=== PATIENT | female | born 1945 | race Caucasian/White ===

== ENCOUNTER → 2016-05-13 | Outpatient (CLI) | payer MEDICARE, OTHER ==
--- NOTE | 2016-05-13 09:31 | REPMRS ---
Patient History The patient states she had a clinical breast exam in 01/2016. Patient is postmenopausal, has history of other cancer at age 68, and is nulliparous. Family history of breast cancer in mother at age 50 or over. Benign stereotatic breast biopsy of the right breast, April 23, 2010. Digital Woman Screen Mammo: May 13, 2016 - Exam #: [id number] Bilateral CC and MLO view(s) were taken. Technologist: Mihaela Chen, Technologist Prior study comparison: May 09, 2015, digital woman screen mammo performed at [facility] [employer] [facility]. May 06, 2014, digital woman screen mammo performed at [facility] [employer] [facility]. May 05, 2013, digital woman screen mammo performed at [facility] [employer] [facility]. FINDINGS: There are scattered fibroglandular densities. There has been no change in the appearance of the mammogram from the prior studies. There is a needle biopsy marker clip in the right breast. There is a mild amount of scattered fibroglandular density which is fairly symmetric. There is no interval development of dominant mass, architectural distortion, or clustered microcalcification suggestive of malignancy. ASSESSMENT: BI-RADS/ACR category 1 mammogram. Negative. Recommendation Routine screening mammogram in 1 year (for women over age 40). This mammogram was interpreted with the aid of an FDA-approved computer-aided dectection system. Electronically Signed By: Chandler Mart MD 05/13/16 0931
== END ==
LOC: M WHC 08:59
PROVIDERS: ATTEND Nurse Practitioner Family
DX: Z12.31 Encounter for screening mammogram for malignant neoplasm of breast (principal); Z80.3 Family history of malignant neoplasm of breast

== ENCOUNTER 2017-01-25 19:23 | Emergency (ER) | payer MEDICARE, OTHER ==
[~2017-01-25] VITALS: Ht 167.6 cm; Wt 77.3 kg
[2017-01-25] MEDS ORDERED: CLOP75TA2 (19:34)
[2017-01-25] MEDS ORDERED: LISI10TA4 (19:34)
[2017-01-25] MEDS ORDERED: LANS30CA (19:34)
[2017-01-25] MEDS ORDERED: PRAV10TA3 (19:34)
[2017-01-25] MEDS ORDERED: ASPI1TAB15 (19:34)
[2017-01-25] MEDS ORDERED: CLINDAMYCIN 150 MG CAP PO ONE (21:45)
[2017-01-25] MEDS ORDERED: CLEO300C2 PO (21:55)
[2017-01-25 22:03] VITALS: BP 152/78
== END 2017-01-25 22:09 | disposition home or self-care (01) ==
LOC: M ED 19:23
DX: L03.211 Cellulitis of face (principal); I10 Essential (primary) hypertension; Z79.01 Long term (current) use of anticoagulants; Z79.899 Other long term (current) drug therapy; Z86.73 Personal history of transient ischemic attack (TIA), and cerebral infarction without residual deficits

== ENCOUNTER → 2017-05-14 | Outpatient (CLI) | payer MEDICARE, OTHER | LOC: M WHC 13:04 | DX: Z12.31 Encounter for screening mammogram for malignant neoplasm of breast (principal) | CPT/HCPCS: 77067 ==

== ENCOUNTER → 2017-12-25 | Outpatient (REF) | payer MEDICARE, OTHER ==
[2017-12-25 16:10] LABS: BASO # 0.1 10^3/uL (0.0-0.2); BASO % 0.8 % (0.0-1.0); EOS # 0.3 10^3/uL (0.0-0.50); EOS % 3.5 % (0.0-3.0); HEMATOCRIT 44.9 % (36.0-47.0); HEMOGLOBIN 15.3 g/dl (12.0-15.5); IMMATURE GRANULOCYTE % 0.5 % (0-3.0); LYMPH # 1.6 10^3/uL (1.5-4.5); LYMPH % 18.9 % (24.0-44.0); MEAN CORPUSCULAR HEMOGLOBIN 30.3 pg (27.0-33.0); MEAN CORPUSCULAR HGB CONC 34.1 g/dl (32.0-36.5); MEAN CORPUSCULAR VOLUME 88.9 fl (80.0-96.0); MONO # 0.7 10^3/uL (0.0-0.8); MONO % 7.9 % (0.0-5.0); NEUTROPHILS # 5.9 10^3/uL (1.8-7.7); NEUTROPHILS % 68.4 % (36.0-66.0); PLATELET COUNT, AUTOMATED 184 10^3/uL (150-450); RED BLOOD COUNT 5.05 10^6/uL (4.00-5.40); RED CELL DISTRIBUTION WIDTH 12.9 % (11.5-14.5); WHITE BLOOD COUNT 8.6 10^3/uL (4.0-10.0)
[2017-12-25 16:21] LABS: ANION GAP 10 MEQ/L (8-16); BLOOD UREA NITROGEN 23 MG/DL (7-18); CALCIUM LEVEL 9.1 MG/DL (8.8-10.2); CARBON DIOXIDE LEVEL 25 MEQ/L (21-32); CHLORIDE LEVEL 105 MEQ/L (98-107); GLOMERULAR FILTRATION RATE > 60.0 (>39); GLUCOSE, FASTING 81 MG/DL (70-100); POTASSIUM SERUM 4.5 MEQ/L (3.5-5.1); SODIUM LEVEL 140 MEQ/L (136-145)
== END ==
LOC: M SFHCPLAZ 14:34
DX: J20.9 Acute bronchitis, unspecified (principal)
CPT/HCPCS: 80048

== ENCOUNTER → 2017-12-25 | Outpatient (CLI) | payer MEDICARE, OTHER | LOC: M SMT 15:00 | DX: J20.9 Acute bronchitis, unspecified (principal) | CPT/HCPCS: 71046; 80048 ==

== ENCOUNTER → 2018-05-19 | Outpatient (CLI) | payer MEDICARE, OTHER ==
[~2018-05-19] MED LIST: ASPI1TAB15; CLEO300C2 PO; CLOP75TA2; LANS30CA; LISI10TA4; PRAV10TA3
--- NOTE | 2018-05-19 12:05 | REPMRS ---
Patient History The patient states she had a clinical breast exam in 01/2018. Patient is postmenopausal, has history of basal cells skin cancer at age 68, and is nulliparous. Family history of breast cancer at age 50 or over in mother. Benign stereotatic breast biopsy of the right breast, April 23, 2010. No Hormone Replacement Therapy 3D TOMOSYNTHESIS WAS PERFORMED. Digital Woman Screen Mammo: May 19, 2018 - Exam #: [id number] Bilateral CC and MLO view(s) were taken. Technologist: Mihaela Chen, Technologist Prior study comparison: May 14, 2017, digital woman screen mammo performed at [facility] [employer] [facility] [employer]. May 13, 2016, digital woman screen mammo performed at [facility] [employer] [facility] [employer]. FINDINGS: There are scattered fibroglandular densities. There has been no change in the appearance of the mammogram from the prior studies. There is a mild amount of residual fibroglandular tissue which is fairly symmetric. There is no interval development of dominant mass, architectural distortion, or clustered microcalcification suggestive of malignancy. Assessment: BI-RADS/ACR category 1 mammogram. Negative Mammogram. Recommendation Routine screening mammogram in 1 year (for women over age 40). This mammogram was interpreted with the aid of an FDA-approved computer-aided dectection system. Electronically Signed By: Will Florentino MD 05/19/18 [id number]
== END ==
LOC: M WHC 10:30
PROVIDERS: ATTEND Nurse Practitioner Family
DX: Z12.31 Encounter for screening mammogram for malignant neoplasm of breast (principal); Z80.3 Family history of malignant neoplasm of breast; Z85.828 Personal history of other malignant neoplasm of skin

== ENCOUNTER → 2019-04-09 | Outpatient (REF) | payer MEDICARE, OTHER ==
[2019-04-09 10:30] LABS: BLOOD UREA NITROGEN 17 MG/DL (7-18); CALCIUM LEVEL 9.4 MG/DL (8.8-10.2); CARBON DIOXIDE LEVEL 30 MEQ/L (21-32); CHLORIDE LEVEL 103 MEQ/L (98-107); CREATININE FOR GFR 0.93 MG/DL (0.55-1.30); GLOMERULAR FILTRATION RATE > 60.0 (>39); GLUCOSE, FASTING 85 MG/DL (70-100); POTASSIUM SERUM 4.4 MEQ/L (3.5-5.1); SODIUM LEVEL 140 MEQ/L (136-145); TROPONIN I < 0.02 NG/ML (< 0.10)
[2019-04-09 12:25] LABS: MALB URINE SIEMENS 5.2 MG/L; MAU/CREAT RATIO 7.2 MCG/MG (0.0-30.0)
== END ==
LOC: M SFHCPLAZ 09:12
PROVIDERS: ATTEND Nurse Practitioner Family
DX: R94.31 Abnormal electrocardiogram [ECG] [EKG] (principal); I10 Essential (primary) hypertension
CPT/HCPCS: 36415; 80048; 82043; 84484; 93005; G0463

== ENCOUNTER → 2019-05-27 | Outpatient (CLI) | payer MEDICARE, OTHER ==
--- NOTE | 2019-05-27 14:21 | REPMRS ---
Patient History The patient states she had a clinical breast exam in 2019. Family history of breast cancer at age 50 or over in mother. Benign stereotatic breast biopsy of the right breast, April 23, 2010. No Hormone Replacement Therapy Digital Woman Screen Mammo: May 27, 2019 - Exam #: [id number] Bilateral CC and MLO view(s) were taken. Technologist: Elizabeth Marie, Technologist Prior study comparison: May 19, 2018, bilateral digital woman screen mammo performed at [facility]. May 14, 2017, digital woman screen mammo performed at [facility]. May 13, 2016, digital woman screen mammo performed at [facility]. FINDINGS: There are scattered fibroglandular densities. A needle biopsy marker clip is again noted in the inferior aspect of the right breast unchanged. There has been no change in the appearance of the mammogram from the prior studies. There is a mild amount of scattered fibroglandular density which is fairly symmetric. There is no interval development of dominant mass, architectural distortion, or grouped microcalcification suggestive of malignancy. 3-D tomosynthesis shows no additional findings. Assessment: BI-RADS/ACR category 2 mammogram. Benign Findings. Recommendation Routine screening mammogram of both breasts in 1 year (for women over age 40). This patient's Lifetime Breast Cancer Risk is estimated at 6.7 %. This mammogram was interpreted with the aid of an FDA-approved computer-aided dectection system. Electronically Signed By: Chandler Mart MD 05/27/19 [id number]
== END ==
LOC: M WHC 13:03
PROVIDERS: ATTEND Nurse Practitioner Family
DX: Z12.31 Encounter for screening mammogram for malignant neoplasm of breast (principal)

== ENCOUNTER 2020-05-30 13:48 | Emergency (ER) | payer MEDICARE, OTHER ==
[~2020-05-30] VITALS: Ht 167.6 cm; Wt 71.5 kg
--- NOTE | 2020-05-30 15:26 | REP ---
INDICATION: dizziness COMPARISON: 12/25/2017. TECHNIQUE: PA/Lateral FINDINGS: Lungs: Clear, no infiltrate. Heart: Normal in size. Mediastinum: Mediastinal silhouette unremarkable. Pleural angles: Unremarkable.. Bones and soft tissues: Unremarkable. There are metallic anchors in each humeral head. IMPRESSION: No acute pulmonary disease. <Electronically signed by Will Florentino > 05/30/20 1506
[2020-05-30 15:27] LABS: BASO # 0.1 10^3/uL (0.0-0.2); BASO % 0.8 % (0.0-1.0); EOS % 0.3 % (0.0-3.0); HEMATOCRIT 47.4 % (36.0-47.0); HEMOGLOBIN 15.3 g/dl (12.0-15.5); LYMPH # 1.1 10^3/uL (1.5-5.0); LYMPH % 17.1 % (24.0-44.0); MEAN CORPUSCULAR HEMOGLOBIN 30.2 pg (27.0-33.0); MEAN CORPUSCULAR HGB CONC 32.3 g/dl (32.0-36.5); MEAN CORPUSCULAR VOLUME 93.5 fl (80.0-96.0); MONO # 0.5 10^3/uL (0.0-0.8); NEUTROPHILS # 4.9 10^3/uL (1.5-8.5); NEUTROPHILS % 74.5 % (36.0-66.0); PLATELET COUNT, AUTOMATED 204 10^3/uL (150-450); RED BLOOD COUNT 5.07 10^6/uL (4.00-5.40); WHITE BLOOD COUNT 6.6 10^3/uL (4.0-10.0)
[2020-05-30 15:51] LABS: ALBUMIN 4.3 GM/DL (3.2-5.2); ALT/SGPT 30 U/L (12-78); BILIRUBIN,DIRECT 0.2 MG/DL (0.0-0.2); BILIRUBIN,TOTAL 0.5 MG/DL (0.2-1.0); BLOOD UREA NITROGEN 22 MG/DL (7-18); CALCIUM LEVEL 9.6 MG/DL (8.8-10.2); CARBON DIOXIDE LEVEL 27 MEQ/L (21-32); CHLORIDE LEVEL 103 MEQ/L (98-107); CPK CREATINE PHOSPHOKINASE 175 U/L (26-192); CREATININE FOR GFR 0.94 MG/DL (0.55-1.30); GLOMERULAR FILTRATION RATE > 60.0 (>39); GLUCOSE, FASTING 88 MG/DL (70-100); MB/CK RELATIVE INDEX 3.43 (< OR =4); POTASSIUM SERUM 4.6 MEQ/L (3.5-5.1); SODIUM LEVEL 139 MEQ/L (136-145); TOTAL PROTEIN 7.4 GM/DL (6.4-8.2); TROPONIN I < 0.02 NG/ML (< 0.10)
--- NOTE | 2020-05-30 20:16 | ECGEPIP ---
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
--- NOTE | 2020-05-30 20:30 | REPVR ---
PROCEDURE INFORMATION: Exam: MR Head Without Contrast Exam date and time: 05/30/2020 7:34 PM Age: 74 years old Clinical indication: Dizziness and walking, difficulty; Additional info: CVA TECHNIQUE: Imaging protocol: MR of the head without contrast. COMPARISON: CT Head without contrast 12/15/2014 2:17 PM FINDINGS: Brain: A small area of encephalomalacia/gliosis within the superior left cerebellum, likely representing an old infarct or brain insult. No restricted diffusion within the brain to suggest an acute infarct. There are scattered foci of FLAIR hyperintensity within the cerebral white matter. There is no mass effect or restricted diffusion associated with these foci. In a patient this age, this likely represents chronic small vessel ischemic disease. No cerebral edema. Foci of magnetic susceptibility calcification are identified within the bilateral basal ganglia. Mild age-appropriate prominence of the sulci. Cerebral ventricles: No ventriculomegaly. Bones/joints: A T2 hyperintense lesion is identified within the left occipital skull, which is nonspecific. This measures 1.9 x 0.5 cm and has slightly increased in size compared to the previous CT. An additional smaller left occipital skull lesion is identified. Paranasal sinuses: Mucous retention cysts or polyps are identified in the left maxillary sinus. Mild mucosal thickening of scattered ethmoid air cells. Minimal mucosal thickening of the right frontal sinus. Mastoid air cells: No mastoid effusion. Orbital cavity: Unremarkable. Soft tissues: Unremarkable, as visualized. Lymph nodes: Subcentimeter intraparotid lymph nodes are identified bilaterally. IMPRESSION: 1. No acute infarct. 2. A small area of encephalomalacia/gliosis within the superior left cerebellum, likely representing an old infarct or brain insult. 3. Mild white matter disease, likely representing chronic small vessel ischemic disease. 4. A T2 hyperintense lesion is identified within the left occipital skull, which is nonspecific. This measures 1.9 x 0.5 cm and has slightly increased in size compared to the previous CT. An additional smaller left occipital skull lesion is identified. 5. Paranasal sinus disease. 6. Additional findings described above. Electronically signed by: Lorenzo Del Valle On 05/30/2020 20:31:06 PM
--- NOTE | 2020-05-30 20:38 | REPVR ---
PROCEDURE INFORMATION: Exam: MR Angiogram Head Without Contrast, Arteries Exam date and time: 05/30/2020 7:34 PM Age: 74 years old Clinical indication: Dizziness and giddiness and other: Gait abnormality; Additional info: CVA TECHNIQUE: Imaging protocol: MR angiogram head without contrast. Exam focused on the arteries. 3D rendering (Not supervised by radiologist): MIP and/or 3D reconstructed images were created by the technologist. COMPARISON: CT Head without contrast 12/15/2014 2:17 PM FINDINGS: ANTERIOR CIRCULATION: Right internal carotid artery: Mild stenosis of the distal petrous/proximal cavernous segment of the right internal carotid artery. No aneurysm. Right middle cerebral artery: No occlusion or significant stenosis. No aneurysm. Right anterior cerebral artery: No occlusion or significant stenosis. No aneurysm. Left internal carotid artery: Intracranial segment is patent with no significant stenosis. No aneurysm. Left middle cerebral artery: No occlusion or significant stenosis. No aneurysm. Left anterior cerebral artery: No occlusion or significant stenosis. No aneurysm. POSTERIOR CIRCULATION: Right vertebral artery: Artifact limits evaluation of the proximal V4 segment of the right vertebral artery. Otherwise, there is no significant stenosis or occlusion. Left vertebral artery: Artifact limits evaluation of the proximal V4 segment of the left vertebral artery. Otherwise, there is no significant stenosis or occlusion. Basilar artery: No occlusion or significant stenosis. No aneurysm. Right posterior cerebral artery: No occlusion or significant stenosis. No aneurysm. Left posterior cerebral artery: No occlusion or significant stenosis. No aneurysm. IMPRESSION: 1. Mild stenosis of the right internal carotid artery. 2. Additional findings described above. Electronically signed by: Lorenzo Del Valle On 05/30/2020 20:38:34 PM
[2020-05-30 21:00] VITALS: BP 120/74
--- OUTSIDE RECORDS SUMMARY | 2020-05-30 21:00 | CCD ---
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 Phone Kimberly Topete PROBLEMS Type Condition ICD9-CM Code [id number] Code Onset Dates Condition S tatus SNOMED Code Notes Problem Osteopenia M85.80 Active 361567635 Problem Gastroesophageal reflux disease without esophagitis K21.9 Active 806877033 Problem Generalized osteoarthrosis, involving multiple sites M15.9 Active 11943112 Problem Acute pain of left shoulder M25.512 Active 4532 6000 Problem Vaginal atrophy N95.2 Active 337187579 Problem Unspecified essential hypertension 401.9 Activ e 69315112 Problem Essential hypertension I10 Active 12463244 Problem Mixed hyperlipidemia E78.2 Active 521714334 Problem History of TIA (transient ischemic attack) Z86.73 Active 954358371 Problem Skin lesion of chest wall L98.9 Active 407599 01 ALLERGIES Allergen (clinical drug ingredient) Drug/Non Drug Allergy do cumented on EMR Reaction Allergy Type Onset Date Status acetaminophen / hydrocodone Hydrocodone-Acetaminophen(NDC Co de:[address]-36) Nausea/Vomiting Drug Allergy Active Tylenol with Codeine #3 does not work Drug Allergy Active ENCOUNTERS from 1945 to 2020-04-25 Encounter Location Date Provider Diagnosis [address] [id number] Apr, 021 Kimberly Topete IMMUNIZATIONS Vaccine Route Administration Date Status Influenza (18 yrs & older) Flublok IM Intramuscular Feb 24, 2018 Administered Influenza (High Dose 65 & up) IM Intramuscular Feb 19, 2017 A dministered Influenza (18 yrs & older) Flublok Unknown Apr 18, 2020 Administered Influenza (Pharmacy Given) Unknown Mar 10, 2019 Admin istered Influenza (6mo & up) Fluzone IM Intramuscular Mar 01, 2010 Ad ministered Influenza (High Dose 65 & up) IM Intramuscular Feb 06, 2016 A dministered Influenza (High Dose 65 & up) IM Intramuscular Feb 14, 2015 A dministered Influenza (High Dose 65 & up) IM Intramuscular Mar 24, 2014 A dministered Pneumococcal Adult 0.5mL (Pneumovax 23) IM Intramuscular Feb 19, 2017 Administered Pneumococcal 0.5mL (Prevnar 13) Unknown Feb 06, 2016 Administered Influenza (6mo & up) Fluzone IM Intramuscular Mar 11, 2013 Ad ministered Influenza (6mo & up) Fluzone IM Intramuscular Feb 19, 2012 Ad ministered Influenza (6mo & up) Fluzone IM Intramuscular Jan 31, 2011 Ad ministered SOCIAL HISTORY Tobacco Use: Social History Observation Description Date Details (start date - stop date) Never Smoker Sex Assigned At : Social History Observation Description Sex Assigned At Unknown Education: Question Answer Notes Level of Education: Not Finished College Audit Question Answer Notes Total Score: 1 Interpretation: Alcohol Education Language: Question Answer Notes Languages spoken: Andorran Yazidism: Question Answer Notes Yazidism 05 Worship Sexual Hx: Question Answer Notes Had sex in the last 12 months (vaginal, oral, or anal)? No Have you ever had an STD? No Drug and Alcohol Question Answer Notes Total Score: 0 Interpretation: No problems reported Alcohol Screening: Question Answer Notes Did you have a drink containing alcohol in the past year? Ye s Points 1 Interpretation Negative How often did you have six or more drinks on one occas ion in the past year? Never (0 points) How many drinks did you have on a typica l day when you were drinking in the past year? 1 or 2 (0 points) How often did you have a drink containing alcohol in t he past year? Monthly or less (1 point) BMI Care Goal Follow-Up Question Answer Notes Above Normal BMI Follow-Up Giving encouragement to exercise Tobacco Use: Question Answer Notes Are you a: never smoker REASON FOR REFERRAL No Information VITAL SIGNS No information MEDICATIONS Medication SIG (Take, Route, Frequency, Duration) Notes Start Da te End Date Status Pravastatin Sodium 10 MG take one tablet by mouth at bedtime Oral for 90 Active Lansoprazole 30 MG take one capsule by mouth every day Oral for 90 da y(s) Active Flax Seed Oil 1000 MG 1 cap Orally three times daily Active Tylenol 8 Hour 650 MG 2 tablets as needed Orally every 8 hrs Active Clopidogrel Bisulfate 75 MG take one tablet by mouth every day Oral for 90 Active ProAir HFA 108 (90 Base) MCG/ACT 2 puffs as needed Inhalation ev violette 6 hrs Dec, Not-Taking Lisinopril 10 mg 1 tablet Orally Once a day for 90 days Active Multivitamins 1 tab Orally daily Not -Taking Vitamin D 1000 UNIT 1 tablet Orally Once a day Active PROCEDURES No Information RESULTS No Results REASON FOR VISIT order for mammogram MEDICAL (GENERAL) HISTORY Type Description Date Medical History hypertension, essential - EKG 08/05, echo 02/02 - Antecol Medical History high cholesterol/ mixed hyperlipidemia Medical History arthritis Medical History Esophageal reflux Medical History osteopenia of spine - DEXA 05/06, FRAX risk: 14.5% major, 1.7% hip Medical History basal cell cancer face (03/04) Medical History Unspecified abnormal mammogram Medical History Transient cerebral ischemia, unspecified transient cerebral ischemia type Medical History Generalized osteoarthrosis, involving mu ltiple sites Surgical History total hysterectomy Surgical History cholecystectomy Surgical History right breast biopsy -benign, [place] 06/29 Surgical History EGD, bx neg - [facility] 10/25 Surgical History colonoscopy, diverticulosis, internal hemorrhoids - repeat5- 10yrs, [facility] 02/27 Surgical History R shoulder rotator cuff -Dr Holder (S OS) 10/02 Surgical History basal cell lesion face - Dr Toledo 02/19 4 Surgical History L shoulder 08-05-16 Goals Section No Information Health Concerns No Information MEDICAL EQUIPMENT No Information MENTAL STATUS No Information FUNCTIONAL STATUS No Information ASSESSMENTS No Information PLAN OF TREATMENT Medication Medication Name Sig Start Date Stop Date Pravastatin Sodium 10 MG take one tablet by mouth at bedtime Ora l for 90 Lisinopril 10 mg 1 tablet Orally Once a day for 90 days Lansoprazole 30 MG take one capsule by mouth every day Oral for 90 day(s) Clopidogrel Bisulfate 75 MG take one tablet by mouth every day O ral for 90 Insurance Providers Payer Name Payer Address Payer Phone Insured Name Patient Relati onship to Insured Coverage Start Date Coverage End Date [facility] [id number] [facility] [id number] ZELALEM PEGUERO MEDICARE Part A and B [address] [facility] [phone] ZELALEM PEGUERO self
--- OUTSIDE RECORDS SUMMARY | 2020-05-30 21:00 | CCD ---
Author Author [facility] Organization [facility] Address Unknown Phone Unavailable Care Team Providers Care Consumer Product Advisor Name Role Phone Kimberly Topete PROBLEMS Type Condition ICD9-CM Code [id number] Code Onset Dates Condition S tatus SNOMED Code Notes Problem Osteopenia M85.80 Active 785780354 Problem Gastroesophageal reflux disease without esophagitis K21.9 Active 934021874 Problem Generalized osteoarthrosis, involving multiple sites M15.9 Active 54230972 Problem Acute pain of left shoulder M25.512 Active 4532 6000 Problem Vaginal atrophy N95.2 Active 205134164 Problem Unspecified essential hypertension 401.9 Activ e 66418839 Problem Essential hypertension I10 Active 83048752 Problem Mixed hyperlipidemia E78.2 Active 523911177 Problem History of TIA (transient ischemic attack) Z86.73 Active 602598996 Problem Skin lesion of chest wall L98.9 Active 917598 01 ALLERGIES Allergen (clinical drug ingredient) Drug/Non Drug Allergy do cumented on EMR Reaction Allergy Type Onset Date Status acetaminophen / hydrocodone Hydrocodone-Acetaminophen(NDC Co de:[address]-44) Nausea/Vomiting Drug Allergy Active Tylenol with Codeine #3 does not work Drug Allergy Active ENCOUNTERS from 1945 to 2020-05-17 Encounter Location Date Provider Diagnosis [address] [address] Apr, 021 Kimberly Topete History of TIA (transient ischemic attack) Z86.73 IMMUNIZATIONS Vaccine Route Administration Date Status Influenza [...] Education Language: Question Answer Notes Languages spoken: Setswana Synagogue: Question Answer Notes Synagogue 05 Rastafarian Sexual Hx: Question Answer Notes Had sex [...] Notes Start Da te End Date Status Lisinopril 10 mg 1 tablet Orally Once a day for 90 days Active Lansoprazole 30 MG take one capsule by mouth every day Oral for 90 da y(s) Active Tylenol 8 Hour 650 MG 2 tablets as needed Orally every 8 hrs Active Multivitamins 1 tab Orally daily Not -Taking Vitamin D 1000 UNIT 1 tablet Orally Once a day Active Pravastatin Sodium 10 MG take one tablet by mouth at bedtime Oral for 90 Active Clopidogrel Bisulfate 75 MG take one tablet by mouth e very day Oral once daily for 90 days Active ProAir HFA 108 (90 Base) MCG/ACT 2 puffs as needed Inhalation ev violette 6 hrs Dec, Not-Taking Flax Seed Oil 1000 MG 1 cap Orally three times daily Active PROCEDURES No Information RESULTS No Results REASON FOR VISIT Clopidogrel Bisulfate 75 MG Tablet MEDICAL (GENERAL) HISTORY Type Description Date Medical [...] 06/29 Surgical History EGD, bx neg - [facility] 10/25 Surgical History colonoscopy, diverticulosis, internal hemorrhoids - repeat5- 10yrs, [facility] 02/27 Surgical History R shoulder rotator cuff -Dr Holder (S OS) 10/02 Surgical History basal cell lesion face - Dr Toledo 02/19 4 Surgical History L shoulder 08-05-16 Goals Section No Information Health Concerns No Information MEDICAL EQUIPMENT No Information MENTAL STATUS No Information FUNCTIONAL STATUS No Information ASSESSMENTS Encounter Date Diagnosis Assessment Notes Treatment Notes Treatm ent Clinical Notes Apr, History of TIA (transient ischemic attack) (ICD- 10 - Z86.73) PLAN OF TREATMENT Medication Medication Name Sig Start Date Stop Date Lisinopril 10 mg 1 tablet Orally Once a day for 90 days Clopidogrel Bisulfate 75 MG take one tablet by mouth e very day Oral once daily for 90 days Lansoprazole 30 MG take one capsule by mouth every day Oral for 90 day(s) Pravastatin Sodium 10 MG take one tablet by mouth at bedtime Ora l for 90 Insurance Providers Payer Name Payer Address Payer Phone Insured Name Patient Relati onship to Insured Coverage Start Date Coverage End Date [facility] [address] [id number] [facility] [phone] ZELALEM PEGUERO self MEDICARE Part A and B [address] [place] [phone] ZELALEM PEGUERO self
--- OUTSIDE RECORDS SUMMARY | 2020-05-30 21:00 | CCD ---
Author Author [facility] Organization [facility] Address Unknown Phone Unavailable Care Team Providers Care Customer Greeter Name Role Phone Kimberly Topete PROBLEMS Type Condition ICD9-CM Code [id number] Code Onset Dates Condition S tatus SNOMED Code Notes Problem Osteopenia M85.80 Active 009554192 Problem Gastroesophageal reflux disease without esophagitis K21.9 Active 674238258 Problem Generalized osteoarthrosis, involving multiple sites M15.9 Active 30852861 Problem Acute pain of left shoulder M25.512 Active 4532 6000 Problem Vaginal atrophy N95.2 Active 771473820 Problem Unspecified essential hypertension 401.9 Activ e 36112952 Problem Essential hypertension I10 Active 03132094 Problem Mixed hyperlipidemia E78.2 Active 205379748 Problem History of TIA (transient ischemic attack) Z86.73 Active 597624948 Problem Skin lesion of chest wall L98.9 Active 770125 01 ALLERGIES Allergen (clinical drug ingredient) Drug/Non Drug Allergy do cumented on EMR Reaction Allergy Type Onset Date Status acetaminophen / hydrocodone Hydrocodone-Acetaminophen(NDC Co de:[address]-18) Nausea/Vomiting Drug Allergy Active Tylenol with Codeine #3 does not work Drug Allergy Active ENCOUNTERS from 1945 to 2020-04-20 Encounter Location Date Provider Diagnosis [address] [address] Mar, 020 Kimberly Topete Medicare annual wellness visit, subsequent Z00.00 ; Other screening mammogram Z12.31 ; Essential hypertension I10 ; Mixed hyperlipidemia E78.2 ; History of TIA (transient ischemic attack) Z86.73 and Gastroesophageal reflux disease without esophagitis K21.9 IMMUNIZATIONS Vaccine Route Administration Date Status Influenza (Pharmacy Given) Unknown Mar 10, 2019 Admin istered Influenza (High Dose 65 & up) IM Intramuscular Feb 19, 2017 A dministered Influenza (18 yrs & older) Flublok IM Intramuscular Feb 24, 2018 Administered Influenza (18 yrs & older) Flublok Unknown Apr 18, 2020 Administered Influenza (6mo & up) Fluzone IM [...] Education Language: Question Answer Notes Languages spoken: Maltese Restoration: Question Answer Notes Restoration 05 Alevism Sexual Hx: Question Answer Notes Had sex [...] REASON FOR REFERRAL No Information VITAL SIGNS Weight 153 lbs Mar, Height 65.75 in Mar, BMI 24.88 kg/m2 Mar, Heart Rate 82 /min Mar, Respiratory Rate 20 /min Mar, Temperature 97 degrees Fahrenheit Mar, Oximetry 100 Mar, Blood pressure systolic 124 mm Hg Mar, Blood pressure diastolic 70 mm Hg Mar, MEDICATIONS Medication SIG (Take, Route, Frequency, Duration) [...] Information RESULTS No Results REASON FOR VISIT AWV MEDICAL (GENERAL) HISTORY Type Description Date Medical [...] Notes Treatment Notes Treatm ent Clinical Notes Mar, Medicare annual wellness visit, subsequent (ICD- 10 - Z00.00) Mar, Other screening mammogram (ICD-10 - Z12.31) Mar, Essential hypertension (ICD-10 - I10) Mar, Mixed hyperlipidemia (ICD-10 - E78.2) Mar, History of TIA (transient ischemic attack) (ICD- 10 - Z86.73) Mar, Gastroesophageal reflux dise ase without esophagitis (ICD-10 - K21.9) PLAN OF TREATMENT Medication Medication Name Sig [...] mouth every day O ral for 90 Future Test Test Name Order Date Comprehensive Metabolic Profile (CMP) [id number] LIPID PANEL (CARDIAC RISK) [id number] MICROALBUMIN RANDOM [id number] PLZ Digital Mammo Screening Bilat [id number] Next Appt Details 1 Year Reason:AWV Follow Up:1 YearAWV Insurance Providers Payer Name Payer Address Payer Phone Insured Name Patient Relati onship to Insured Coverage Start Date Coverage End Date MEDICARE Part A and B [address] [facility] [phone] [facility] [place] [address] [facility] [phone] ZEALLEM PEGUERO
--- OUTSIDE RECORDS SUMMARY | 2020-05-30 21:00 | CCD ---
Author Author [facility] Organization [facility] Address Unknown Phone Unavailable Care Team Providers Care Local Company Truck Driver Name Role Phone Lindsey Shine Unavailable PROBLEMS Type Condition ICD9-CM Code HDQ91-IV Code Onset Dates Condition S tatus SNOMED Code Notes Problem Osteopenia M85.80 Active 122785869 Problem Gastroesophageal reflux disease without esophagitis K21.9 Active 682678849 Problem Generalized osteoarthrosis, involving multiple sites M15.9 Active 44141713 Problem Acute pain of left shoulder M25.512 Active 4532 6000 Problem Vaginal atrophy N95.2 Active 001655548 Problem Unspecified essential hypertension 401.9 Activ e 89674065 Problem Essential hypertension I10 Active 78856552 Problem Mixed hyperlipidemia E78.2 Active 673686526 Problem History of TIA (transient ischemic attack) Z86.73 Active 767855811 Problem Skin lesion of chest wall L98.9 Active 171929 01 ALLERGIES Allergen (clinical drug ingredient) Drug/Non Drug Allergy do cumented on EMR Reaction Allergy Type Onset Date Status acetaminophen / hydrocodone Hydrocodone-Acetaminophen(NDC Co de:[address]-15) Nausea/Vomiting Drug Allergy Active Tylenol with Codeine #3 does not work Drug Allergy Active ENCOUNTERS from 1945 to 2020-04-08 Encounter Location Date Provider Diagnosis [address] [address] Mar, Lindsey Shine IMMUNIZATIONS Vaccine Route Administration Date Status Influenza (High Dose 65 & up) IM Intramuscular Feb 06, 2016 A dministered Influenza (High Dose 65 & up) IM Intramuscular Feb 14, 2015 A dministered Influenza (High Dose 65 & up) IM Intramuscular Mar 24, 2014 A dministered Influenza (Pharmacy Given) Unknown Mar 10, 2019 Admin istered Pneumococcal 0.5mL (Prevnar 13) Unknown Feb 06, 2016 Administered Influenza (6mo & up) Fluzone IM Intramuscular Mar 11, 2013 Ad ministered Influenza (High Dose 65 & up) IM Intramuscular Feb 19, 2017 A dministered Influenza (6mo & up) Fluzone IM Intramuscular Feb 19, 2012 Ad ministered Pneumococcal Adult 0.5mL (Pneumovax 23) IM Intramuscular Feb 19, 2017 Administered Influenza (6mo & up) Fluzone IM Intramuscular Jan 31, 2011 Ad ministered Influenza (18 yrs & older) Flublok IM Intramuscular Feb 24, 2018 Administered Influenza (6mo & up) Fluzone IM Intramuscular Mar 01, 2010 Ad ministered SOCIAL HISTORY Tobacco Use: Social History Observation Description Date Details (start date - stop date) Never Smoker Sex Assigned At : Social History Observation Description Sex Assigned At Unknown Education: Question Answer Notes Level of Education: Not Finished College Audit Question Answer Notes Total Score: 0 Interpretation: Alcohol Education Language: Question Answer Notes Languages spoken: Albanian Buddhist: Question Answer Notes Buddhist 05 Restorationism Sexual Hx: Question Answer Notes Had sex [...] Notes Start Da te End Date Status Clopidogrel Bisulfate 75 MG take one tablet by mouth every day Oral for 90 Active Vitamin D 1000 UNIT 1 tablet Orally Once a day Active Lisinopril 10 mg 1 tablet Orally Once a day for 90 days Active Flax Seed Oil 1000 MG 1 cap Orally three times daily Active Pravastatin Sodium 10 MG take one tablet by mouth at bedtime Oral for 90 Active Lansoprazole 30 MG TAKE ONE CAPSULE BY MOUTH EVERY DAY Oral Active Tylenol 8 Hour 650 MG 2 tablets as needed Orally every 8 hrs Active ProAir HFA 108 (90 Base) MCG/ACT 2 puffs as needed Inhalation ev violette 6 hrs Dec, Not-Taking Multivitamins 1 tab Orally daily Not -Taking PROCEDURES No Information RESULTS No Results REASON FOR VISIT ACO MAW MEDICAL (GENERAL) HISTORY Type Description Date Medical [...] mouth every day O ral for 90 Pravastatin Sodium 10 MG take one tablet by mouth at bedtime Ora l for 90 Next Appt Details Provider Name:Kimberly Topete, 2020-04-18 07:3 0:00 AM, [address] [place], [address], Insurance Providers Payer Name Payer Address Payer Phone Insured Name Patient Relati onship to Insured Coverage Start Date Coverage End Date [facility] [id number] [facility] [phone] ZELALEM PEGUERO MEDICARE Part A and B [address] [facility] [phone] ZELALEM PEGUERO self
--- OUTSIDE RECORDS SUMMARY | 2020-05-30 21:24 | CCD ---
Author Author [facility] Organization [facility] Address Unknown Phone Unavailable Care Team Providers [facility] Assistant Director Name Role Phone ANTECOL, Amparo FUNES MD Unavailable Unavailable ANTECOL, Amparo FUNES MD Unavailable Unavailable ANTECOL, Amparo FUNES MD Unavailable Unavailable ANTECOL, Amparo FUNES MD Unavailable Unavailable ANTECOL, Amparo FUNES MD Unavailable Unavailable ANTECOL, Amparo FUNES MD Unavailable Unavailable ANTECOL, Amparo FUNES MD Unavailable Unavailable ANTECOL, Amparo FUNES MD Unavailable Unavailable ANTECOL, Amparo FUNES MD Unavailable Unavailable ANTECOLAmparo MD Unavailable Unavailable ANTECOLAmparo MD Unavailable Unavailable ANTECOLAmparo MD Unavailable Unavailable ANTECOLAmparo MD Unavailable Unavailable ANTECOL, Amparo FUNES MD Unavailable Unavailable ANTECOLAmparo MD Unavailable Unavailable ANTECOLAmparo MD Unavailable Unavailable ANTECOLAmparo MD Unavailable Unavailable ANTECOLAmparo MD Unavailable Unavailable ANTECOLAmparo MD Unavailable Unavailable ANTECOLAmparo MD Unavailable Unavailable ANTECOLAmparo MD Unavailable Unavailable ANTECOLAmparo MD Unavailable Unavailable ANTECOLAmparo MD Unavailable Unavailable ANTECOLAmparo MD Unavailable Unavailable ANTECOLAmparo MD Unavailable Unavailable ANTECOLAmparo MD Unavailable Unavailable ANTECOLAmparo MD Unavailable Unavailable ANTECOLAmparo MD Unavailable Unavailable ANTECOLAmparo MD Unavailable Unavailable ANTECOLAmparo MD Unavailable Unavailable ANTECOL, Amparo FUNES MD Unavailable Unavailable ANTECOLAmparo MD Unavailable Unavailable ANTECOLAmparo MD Unavailable Unavailable ANTECOL, Amparo FUNES MD Unavailable Unavailable ANTECOL, Amparo FUNES MD Unavailable Unavailable ANTECOL, Amparo FUNES MD Unavailable Unavailable ANTECOL, Amparo FUNES MD Unavailable Unavailable ANTECOL, Amparo FUNES MD Unavailable Unavailable ANTECOL, Amparo FUNES MD Unavailable Unavailable ANTECOL, Amparo FUNES MD Unavailable Unavailable ANTECOL, Amparo FUNES MD Unavailable Unavailable ANTECOL, Amparo FUNES MD Unavailable Unavailable ANTECOL, Amparo FUNES MD Unavailable Unavailable ANTECOL, Amparo FUNES MD Unavailable Unavailable ANTECOL, Amparo FUNES MD Unavailable Unavailable ANTECOL, Amparo FUNES MD Unavailable Unavailable ANTECOL, Amparo FUNES MD Unavailable Unavailable ANTECOL, Amparo FUNES MD Unavailable Unavailable ANTECOL, Amparo FUNES MD Unavailable Unavailable ANTECOL, Amparo FUNES MD Unavailable Unavailable ANTECOL, Amparo FUNES MD Unavailable Unavailable ANTECOL, Amparo FUNES MD Unavailable Unavailable ANTECOL, Amparo FUNES MD Unavailable Unavailable ANTECOL, Amparo FUNES MD Unavailable Unavailable ANTECOL, Amparo FUNES MD Unavailable Unavailable Fatti, J Christopher DPM Unavailable Unavailable Fatti, J Christopher DPM Unavailable Unavailable Fatti, J Christopher DPM Unavailable Unavailable Fatti, J Christopher DPM Unavailable Unavailable Fatti, J Christopher DPM Unavailable Unavailable Fatti, J Christopher DPM Unavailable Unavailable Fatti, J Christopher DPM Unavailable Unavailable Fatti, J Christopher DPM Unavailable Unavailable Fatti, J Christopher DPM Unavailable Unavailable Fatti, J Christopher DPM Unavailable Unavailable Fatti, J Christopher DPM Unavailable Unavailable Fatti, J Christopher DPM Unavailable Unavailable Fatti, J Christopher DPM Unavailable Unavailable Fatti, J Christopher DPM Unavailable Unavailable Fatti, J Christopher DPM Unavailable Unavailable Fatti, J Christopher DPM Unavailable Unavailable Fatti, J Christopher DPM Unavailable Unavailable Fatti, J Christopher DPM Unavailable Unavailable Fatti, J Christopher DPM Unavailable Unavailable Fatti, J Christopher DPM Unavailable Unavailable Fatti, J Christopher DPM Unavailable Unavailable Fatti, J Christopher DPM Unavailable Unavailable Fatti, J Christopher DPM Unavailable Unavailable Fatti, J Christopher DPM Unavailable Unavailable Fatti, J Christopher DPM Unavailable Unavailable Fatti, J Christopher DPM Unavailable Unavailable Fatti, J Christopher DPM Unavailable Unavailable Fatti, J Christopher DPM Unavailable Unavailable Fatti, J Christopher DPM Unavailable Unavailable Fatti, J Christopher DPM Unavailable Unavailable Fatti, J Christopher DPM Unavailable Unavailable Fatti, J Christopher DPM Unavailable Unavailable Fatti, J Christopher DPM Unavailable Unavailable Fatti, J Christopher DPM Unavailable Unavailable Fatti, J Christopher DPM Unavailable Unavailable Fatti, J Christopher DPM Unavailable Unavailable Fatti, J Christopher DPM Unavailable Unavailable Fatti, J Christopher DPM Unavailable Unavailable Fatti, J Christopher DPM Unavailable Unavailable Fatti, J Christopher DPM Unavailable Unavailable Fatti, J Christopher DPM Unavailable Unavailable Fatti, J Christopher DPM Unavailable Unavailable Fatti, J Christopher DPM Unavailable Unavailable Fatti, J Christopher DPM Unavailable Unavailable Fatti, J Christopher DPM Unavailable Unavailable Fatti, J Christopher DPM Unavailable Unavailable Fatti, J Christopher DPM Unavailable Unavailable Fatti, J Christopher DPM Unavailable Unavailable Fatti, J Christopher DPM Unavailable Unavailable Fatti, J Christopher DPM Unavailable Unavailable Fatti, J Christopher DPM Unavailable Unavailable Fatti, J Christopher DPM Unavailable Unavailable Fatti, J Christopher DPM Unavailable Unavailable Fatti, J Christopher DPM Unavailable Unavailable Fatti, J Christopher DPM Unavailable Unavailable Fatti, J Christopher DPM Unavailable Unavailable Fatti, J Christopher DPM Unavailable Unavailable Fatti, J Christopher DPM Unavailable Unavailable Fatti, J Christopher DPM Unavailable Unavailable Fatti, J Christopher DPM Unavailable Unavailable Fatti, J Christopher DPM Unavailable Unavailable Fatti, J Christopher DPM Unavailable Unavailable Fatti, J Christopher DPM Unavailable Unavailable Fatti, J Christopher DPM Unavailable Unavailable Fatti, J Christopher DPM Unavailable Unavailable Fatti, J Christopher DPM Unavailable Unavailable Fatti, J Christopher DPM Unavailable Unavailable Fatti, J Christopher DPM Unavailable Unavailable DOWELL, H LETTY BINGO CASHIER Unavailable Unavailable DOWELL, H LETTY BINGO CASHIER Unavailable Unavailable DOWELL, H LETTY BINGO CASHIER Unavailable Unavailable DOWELL, H LETTY BINGO CASHIER Unavailable Unavailable DOWELL, H LETTY BINGO CASHIER Unavailable Unavailable DOWELL, H LETTY BINGO CASHIER Unavailable Unavailable DOWELL, H LETTY BINGO CASHIER Unavailable Unavailable DOWELL, H LETTY BINGO CASHIER Unavailable Unavailable DOWELL, H LETTY BINGO CASHIER Unavailable Unavailable DOWELL, H LETTY BINGO CASHIER Unavailable Unavailable DOWELL, H LETTY BINGO CASHIER Unavailable Unavailable DOWELL, H LETTY BINGO CASHIER Unavailable Unavailable DOWELL, H LETTY BINGO CASHIER Unavailable Unavailable DOWELL, H LETTY BINGO CASHIER Unavailable Unavailable DOWELL, H LETTY BINGO CASHIER Unavailable Unavailable DOWELL, H LETTY BINGO CASHIER Unavailable Unavailable DOWELL, H LETTY BINGO CASHIER Unavailable Unavailable DOWELL, H LETTY BINGO CASHIER Unavailable Unavailable DOWELL, H LETTY BINGO CASHIER Unavailable Unavailable DOWELL, H LETTY BINGO CASHIER Unavailable Unavailable DOWELL, H LETTY BINGO CASHIER Unavailable Unavailable DOWELL, H LETTY BINGO CASHIER Unavailable Unavailable DOWELL, H LETTY BINGO CASHIER Unavailable Unavailable DOWELL, H LETTY BINGO CASHIER Unavailable Unavailable DOWELL, H LETTY BINGO CASHIER Unavailable Unavailable DOWELL, H LETTY BINGO CASHIER Unavailable Unavailable DOWELL, H LETTY BINGO CASHIER Unavailable Unavailable DOWELL, H LETTY BINGO CASHIER Unavailable Unavailable DOWELL, H LETTY BINGO CASHIER Unavailable Unavailable DOWELL, H LETTY BINGO CASHIER Unavailable Unavailable DOWELL, H LETTY BINGO CASHIER Unavailable Unavailable DOWELL, H LETTY BINGO CASHIER Unavailable Unavailable DOWELL, H LETTY BINGO CASHIER Unavailable Unavailable DOWELL, H LETTY BINGO CASHIER Unavailable Unavailable DOWELL, H LETTY BINGO CASHIER Unavailable Unavailable DOWELL, H LETTY BINGO CASHIER Unavailable Unavailable DOWELL, H LETTY BINGO CASHIER Unavailable Unavailable DOWELL, H LETTY BINGO CASHIER Unavailable Unavailable DOWELL, H LETTY BINGO CASHIER Unavailable Unavailable DOWELL, H LETTY BINGO CASHIER Unavailable Unavailable DOWELL, H LETTY BINGO CASHIER Unavailable Unavailable DOWELL, H LETTY BINGO CASHIER Unavailable Unavailable DOWELL, H LETTY BINGO CASHIER Unavailable Unavailable DOWELL, H LETTY BINGO CASHIER Unavailable Unavailable DOWELL, H LETTY BINGO CASHIER Unavailable Unavailable DOWELL, H LETTY BINGO CASHIER Unavailable Unavailable DOWELL, H LETTY BINGO CASHIER Unavailable Unavailable DOWELL, H LETTY BINGO CASHIER Unavailable Unavailable DOWELL, H LETTY BINGO CASHIER Unavailable Unavailable DOWELL, H LETTY BINGO CASHIER Unavailable Unavailable DOWELL, H LETTY BINGO CASHIER Unavailable Unavailable DOWELL, H LETTY BINGO CASHIER Unavailable Unavailable DOWELL, H LETTY BINGO CASHIER Unavailable Unavailable DOWELL, H LETTY BINGO CASHIER Unavailable Unavailable DOWELL, H LETTY BINGO CASHIER Unavailable Unavailable Vicky Holder MD Unavailable Unavailable Vicky Holder MD Unavailable Unavailable Vicky Holder MD Unavailable Unavailable Vicky Holder MD Unavailable Unavailable Vicky Holder MD Unavailable Unavailable Vicky Holder MD Unavailable Unavailable iVcky Holder MD Unavailable Unavailable Vicky Holder MD Unavailable Unavailable Vicky Holder MD Unavailable Unavailable Vicky Holder MD Unavailable Unavailable Vicky Holder MD Unavailable Unavailable Vicky Holder MD Unavailable Unavailable Vicky Holder MD Unavailable Unavailable Vicky Holder MD Unavailable Unavailable Vicky Holder MD Unavailable Unavailable Vicky Holder MD Unavailable Unavailable Vicky Holder MD Unavailable Unavailable Vicky Holder MD Unavailable Unavailable Vicky Holder MD Unavailable Unavailable Vicky Holder MD Unavailable Unavailable Vicky Holder MD Unavailable Unavailable Vicky Holder MD Unavailable Unavailable Vicky Holder MD Unavailable Unavailable Vicky Holder MD Unavailable Unavailable Vicky Holder MD Unavailable Unavailable Vicky Holder MD Unavailable Unavailable Vicky Holder MD Unavailable Unavailable Vicky Holder MD Unavailable Unavailable Vicky Holder MD Unavailable Unavailable Vicky Holder MD Unavailable Unavailable Vicky Holder MD Unavailable Unavailable Vicky Holder MD Unavailable Unavailable Vicky Holder MD Unavailable Unavailable Vicky Holder MD Unavailable Unavailable Vicky Holder MD Unavailable Unavailable Vicky Holder MD Unavailable Unavailable Vicky Holder MD Unavailable Unavailable Vicky Holder MD Unavailable Unavailable Vicky Holder MD Unavailable Unavailable Vicky Holder MD Unavailable Unavailable Vicky Holder MD Unavailable Unavailable Vicky Holder MD Unavailable Unavailable Vicky Holder MD Unavailable Unavailable Vicky Holder MD Unavailable Unavailable Vicky Holder MD Unavailable Unavailable Vicky Holder MD Unavailable Unavailable Vicky Holder MD Unavailable Unavailable Vicky Holder MD Unavailable Unavailable Vicky Holder MD Unavailable Unavailable Vicky Holder MD Unavailable Unavailable Vicky Holder MD Unavailable Unavailable Vicky Holder MD Unavailable Unavailable Vicky Holder MD Unavailable Unavailable Vicky Holder MD Unavailable Unavailable Vicky Holder MD Unavailable Unavailable Vicky Holder MD Unavailable Unavailable Vicky Holder MD Unavailable Unavailable Wnorowski MD, C Will Unavailable Unavailable Wnzakiwski MD, C Will Unavailable Unavailable Glory GONZALEZ, C Will Unavailable Unavailable Glory GONZALEZ, C Will Unavailable Unavailable Glory GONZALEZ, C Will Unavailable Unavailable Glory GONZALEZ, C Will Unavailable Unavailable Glory GONZALEZ, C Will Unavailable Unavailable Glory GONZALEZ, C Will Unavailable Unavailable Glory GONZALEZ, C Will Unavailable Unavailable Glory GONZALEZ, C Will Unavailable Unavailable White, Evelyn RPA-C Unavailable Unavailable Winsome, Evelyn RPA-C Unavailable Unavailable Winsome, Evelyn RPA-C Unavailable Unavailable White, Evelyn RPA-C Unavailable Unavailable Winsome, Evelyn RPA-C Unavailable Unavailable White, Evelyn RPA-C Unavailable Unavailable Winsome, Evelyn RPA-C Unavailable Unavailable White, Evelyn RPA-C Unavailable Unavailable White, Evelyn RPA-C Unavailable Unavailable Winsome, Evelyn RPA-C Unavailable Unavailable White, Evelyn RPA-C Unavailable Unavailable Winsome, Evelyn RPA-C Unavailable Unavailable Winsome, Evelyn RPA-C Unavailable Unavailable Winsome, Evelyn RPA-C Unavailable Unavailable Winsome, Evelyn RPA-C Unavailable Unavailable Winsome, Evelyn RPA-C Unavailable Unavailable White, Evelyn RPA-C Unavailable Unavailable White, Evelyn RPA-C Unavailable Unavailable White, Evelyn RPA-C Unavailable Unavailable White, Evelyn RPA-C Unavailable Unavailable White, Evelyn RPA-C Unavailable Unavailable White, Evelyn RPA-C Unavailable Unavailable White, Evelyn RPA-C Unavailable Unavailable White, Evelyn RPA-C Unavailable Unavailable White, Evelyn RPA-C Unavailable Unavailable Winsome, Evelyn RPA-C Unavailable Unavailable White, Evelyn RPA-C Unavailable Unavailable White, Evelyn RPA-C Unavailable Unavailable White, Evelyn RPA-C Unavailable Unavailable Winsome, Evelyn RPA-C Unavailable Unavailable White, Evelyn RPA-C Unavailable Unavailable Winsome, Evelyn RPA-C Unavailable Unavailable White, Evelyn RPA-C Unavailable Unavailable White, Evelyn RPA-C Unavailable Unavailable Winsome, Evelyn RPA-C Unavailable Unavailable Winsome, Evelyn RPA-C Unavailable Unavailable White, Evelyn RPA-C Unavailable Unavailable Winsome, Evelyn RPA-C Unavailable Unavailable White, Evelyn RPA-C Unavailable Unavailable White, Evelyn RPA-C Unavailable Unavailable Winsome, Evelyn RPA-C Unavailable Unavailable Winsome, Evelyn RPA-C Unavailable Unavailable Winsome, Evelyn RPA-C Unavailable Unavailable White, Evelyn RPA-C Unavailable Unavailable Winsome, Evelyn RPA-C Unavailable Unavailable White, Evelyn RPA-C Unavailable Unavailable Winsome, Evelyn RPA-C Unavailable Unavailable Winsome, Evelyn RPA-C Unavailable Unavailable White, Evelyn RPA-C Unavailable Unavailable Winsoem, Evelyn RPA-C Unavailable Unavailable White, Evelyn RPA-C Unavailable Unavailable White, Evelyn RPA-C Unavailable Unavailable White, Evelyn RPA-C Unavailable Unavailable White, Evelyn RPA-C Unavailable Unavailable White, Evelyn RPA-C Unavailable Unavailable Winsome, Evelyn RPA-C Unavailable Unavailable Winsome, Evelyn RPA-C Unavailable Unavailable White, Evelyn RPA-C Unavailable Unavailable White, Evelyn RPA-C Unavailable Unavailable Winsome, Evelyn RPA-C Unavailable Unavailable Winsome, Evelyn RPA-C Unavailable Unavailable White, Evelyn RPA-C Unavailable Unavailable Winsome, Evelyn RPA-C Unavailable Unavailable Winsome, Evelyn RPA-C Unavailable Unavailable White, Evelyn RPA-C Unavailable Unavailable Petr Henry MD Unavailable Unavailable Petr Henry MD Unavailable Unavailable Petr Henry MD Unavailable Unavailable Petr Henry MD Unavailable Unavailable Petr Henry MD Unavailable Unavailable Petr Henry MD Unavailable Unavailable Petr Henry MD Unavailable Unavailable Petr Henry MD Unavailable Unavailable Petr Henry MD Unavailable Unavailable Winsome, Evelyn RPA-C Unavailable Unavailable White, Evelyn RPA-C Unavailable Unavailable Winsome, Evelyn RPA-C Unavailable Unavailable Winsome, Evelyn RPA-C Unavailable Unavailable White, Evelyn RPA-C Unavailable Unavailable Winsome, Evelyn RPA-C Unavailable Unavailable Winsome, Evelyn RPA-C Unavailable Unavailable White, Evelyn RPA-C Unavailable Unavailable White, Evelyn RPA-C Unavailable Unavailable White, Evelyn RPA-C Unavailable Unavailable White, Evelyn RPA-C Unavailable Unavailable Winsome, Veelyn RPA-C Unavailable Unavailable Winsome, Evelyn RPA-C Unavailable Unavailable White, Evelyn RPA-C Unavailable Unavailable Winsome, Evelyn RPA-C Unavailable Unavailable Winsome, Evelyn RPA-C Unavailable Unavailable White, Evelyn RPA-C Unavailable Unavailable White, Evelyn RPA-C Unavailable Unavailable White, Evelyn RPA-C Unavailable Unavailable White, Evelyn RPA-C Unavailable Unavailable White, Evelyn RPA-C Unavailable Unavailable White, Evelyn RPA-C Unavailable Unavailable Winsome, Evelyn RPA-C Unavailable Unavailable White, Evelyn RPA-C Unavailable Unavailable Winsome, Evelyn RPA-C Unavailable Unavailable White, Evelyn RPA-C Unavailable Unavailable White, Evelyn RPA-C Unavailable Unavailable White, Evelyn RPA-C Unavailable Unavailable Winsome, Evelyn RPA-C Unavailable Unavailable White, Evelyn RPA-C Unavailable Unavailable Winsome, Evelyn RPA-C Unavailable Unavailable White, Evelyn RPA-C Unavailable Unavailable White, Evelyn RPA-C Unavailable Unavailable Winsome, Evelyn RPA-C Unavailable Unavailable White, Evelyn RPA-C Unavailable Unavailable Winsome, Evelyn RPA-C Unavailable Unavailable White, Evelyn RPA-C Unavailable Unavailable Winsome, Evelyn RPA-C Unavailable Unavailable Winsome, Evelyn RPA-C Unavailable Unavailable White, Evelyn RPA-C Unavailable Unavailable White, Evelyn RPA-C Unavailable Unavailable White, Evelyn RPA-C Unavailable Unavailable White, Evelyn RPA-C Unavailable Unavailable White, Evelyn RPA-C Unavailable Unavailable White, Evelyn RPA-C Unavailable Unavailable White, Evelyn RPA-C Unavailable Unavailable Winsome, Evelyn RPA-C Unavailable Unavailable Winsome, Evelyn RPA-C Unavailable Unavailable White, Evelyn RPA-C Unavailable Unavailable White, Evelyn RPA-C Unavailable Unavailable White, Evelyn RPA-C Unavailable Unavailable Winsome, Evelyn RPA-C Unavailable Unavailable White, Evelyn RPA-C Unavailable Unavailable Winsome, Evelyn RPA-C Unavailable Unavailable Winsome, Evelyn RPA-C Unavailable Unavailable Winsome, Evelyn RPA-C Unavailable Unavailable White, Evelyn RPA-C Unavailable Unavailable Winsome, Evelyn RPA-C Unavailable Unavailable Winsome, Evelyn RPA-C Unavailable Unavailable White, Evelyn RPA-C Unavailable Unavailable Winsome, Evelyn RPA-C Unavailable Unavailable Winsome, Evelyn RPA-C Unavailable Unavailable Winsome, Evelyn RPA-C Unavailable Unavailable White, Evelyn RPA-C Unavailable Unavailable Winsome, Evelyn RPA-C Unavailable Unavailable Re-disclosure Warning The records that you are about to access may contain information from federally-assisted alcohol or drug abuse programs. If such information is present, then the following federally mandated warning applies: This information has been disclosed to you from records protected by federal confidentiality rules (42 CFR part 2). The federal rules prohibit you from making any further disclosure of this information unless further disclosure is expressly permitted by the written consent of the person to whom it pertains or as otherwise permitted by 42 CFR part 2. A general authorization for the release of medical or other information is NOT sufficient for this purpose. The Federal rules restrict any use of the information to criminally investigate or prosecute any alcohol or drug abuse patient.The records that you are about to access may contain highly sensitive health information, the redisclosure of which is protected by Article 27-F of the [facility] Public Health law. If you continue you may have access to information: Regarding HIV / AIDS; Provided by facilities licensed or operated by the [facility] Office of Mental Health; or Provided by the [facility] Office for People With Developmental Disabilities. If such information is present, then the following [facility] mandated warning applies: This information has been disclosed to you from confidential records which are protected by state law. State law prohibits you from making any further disclosure of this information without the specific written consent of the person to whom it pertains, or as otherwise permitted by law. Any unauthorized further disclosure in violation of state law may result in a fine or mcc sentence or both. A general authorization for the release of medical or other information is NOT sufficient authorization for further disc losure. Allergies and Adverse Reactions Type Description Substance Reaction Status Data Source(s ) Hydrocodone-Acetaminophen Hydrocodone-Acetaminophen Acetamin ophen 21.7 MG/ML / Hydrocodone Bitartrate 0.5 MG/ML Oral Solution Nausea/Vomiting Active eCW1 ([facility]) Tylenol with Codeine #3 Tylenol with Codeine #3 Tylenol with Cod eine #3 does not work Active eCW1 ([facility]) Family History Family Member Name Family Member Gender Family Member Status Date o f Status Description Data Source(s) Unknown Male Problem (finding) 10/04/2011 12:00:00 AM EDT NextGen ([facility]) Unknown Unknown Problem MEDENT ([facility]) Unknown [facility] Problem MEDENT ([facility]) breast- mother Unknown Male Problem MEDENT ([facility]) Unknown Unknown Problem [facility] ([facility] Encounters Encounter Providers Location Date Indications Data Source(s ) P Attender: Petr Henry MD 06/05/2020 06:40:00 PM EST [facility] Outpatient Attender: Petr Henry MD 05/15/2020 06:48:00 PM EST [facility] [place] [address] [address] 05/15/2020 12:00:00 AM EST eCW1 ([facility]) Recurring Patient Attender: Will Hamiltonferrer: July White RPA-C 04/26/2020 02:14:18 PM EST [facility] Out[facility] Attender: Will Holder MDReferrer: LETTY DOWELL NP 04/22/2020 01:29:51 PM EST [facility] [place] [address] [address] 04/21/2020 12:00:00 AM EST eCW1 ([facility]) Office Visit, Est Pt., Level 2 FC [address] [place] [address] 04/18/2020 12:00:00 AM EST eCW1 ([facility]) [place] [address] [address] 04/06/2020 12:00:00 AM EST eCW1 ([facility]) Outpatient Attender: Jose Arcos DPMReferrer: LETTY MENDOZA BINGO CASHIER 03/20/2020 07:46:56 AM EST [facility] [place] [address] [address] 02/03/2020 12:00:00 AM EDT eCW1 ([facility]) Outpatient Attender: Will Holder MDReferrer: LETTY DOWELL NP 11/22/2019 05:43:38 PM EDT [facility] Recurring Patient Attender: Will Hamiltonferrer: July White RPA-C 11/10/2019 09:51:38 AM EDT [facility] OutpatientOFF[facility]/OUTPATIENT VISIT, EST [facility] 11/04/2019 01:00:00 PM EDT - 11/04/2019 01:00:00 PM EDT Primary generalized (osteo)arthritis [facility] ([facility]) Primary generalized (osteo)arthritis Outpatient Attender: Will Holder MDReferrer: LETTY DOWELL NP 06/22/2019 05:46:18 AM EST [facility] Recurring Patient Attender: Will Hurtado DReferrer: July White RPA-C 06/09/2019 10:38:37 AM EST [facility] Outpatient 06/03/2019 12:21:00 PM EST [facility] Recurring Patient Attender: Will Hurtado DReferrer: July White RPA-C 05/24/2019 09:59:23 AM EST [facility] Recurring Patient Attender: Will Hurtado DReferrer: July White RPA-C 05/24/2019 09:59:15 AM EST [facility] Recurring Patient Attender: Will Hurtado DReferrer: July White RPA-C 05/24/2019 09:59:05 AM EST [facility] Recurring Patient Attender: Will Hurtado DReferrer: July White RPA-C 05/24/2019 09:57:58 AM EST [facility] Recurring Patient Attender: Will Hamiltonferrer: July White RPA-C 05/24/2019 09:57:49 AM EST [facility] Recurring Patient Attender: Will Hamiltonferrer: July White RPA-C 05/24/2019 09:57:44 AM EST [facility] Outpatient Attender: MARIN REGALADO MD Main Office 04/27/2019 11:30:00 AM EST [facility] ([facility] [facility]) [address], [place] [address] 04/09/2019 12:00:00 AM EST eCW1 ([facility]) Immunizations Vaccine Date Status Description Data Source(s) influenza, recombinant, quadrIvalent,injectable, prese rvative free 04/18/2020 07:48:00 AM EST completed eCW1 ([facility]) influenza, recombinant, quadrIvalent,injectable, prese rvative free 04/18/2020 07:48:00 AM EST completed eCW1 ([facility]) influenza, recombinant, quadrIvalent,injectable, prese rvative free 04/18/2020 07:48:00 AM EST completed eCW1 ([facility]) Medications Medication Brand Name Start Date Product Form Dose Route Admi nistrative Instructions Pharmacy Instructions Status Indications Reaction Description Data Source(s) 75 mg 05/18/2020 12:00:00 AM EST tablet 30 TAKE ONE TABLET BY MOUTH EVERY DAY TAKE ONE TABLET BY MOUTH EVERY DAY SOLD: 05/18/2020 [facility] 10 mg 10/20/2019 12:00:00 AM EDT tablet 30 TAKE ONE TABLET BY MOUTH EVERY DAY TAKE ONE TABLET BY MOUTH EVERY DAY SOLD: 11/20/2019 [facility] 10 mg 10/20/2019 12:00:00 AM EDT tablet 30 TAKE ONE TABLET BY MOUTH EVERY DAY TAKE ONE TABLET BY MOUTH EVERY DAY SOLD: 12/17/2019 [facility] 10 mg 10/20/2019 12:00:00 AM EDT tablet 30 TAKE ONE TABLET BY MOUTH EVERY DAY TAKE ONE TABLET BY MOUTH EVERY DAY SOLD: 10/20/2019 [facility] Super B-Complex 04/26/2019 12:00:00 AM EST ORAL ac tive MEDENT ([facility] Cholecalciferol 1000 UNT Oral Capsule Vitamin D-3 04/26/2019 12:00 :00 AM EST ORAL active MEDENT ([facility] Insurance Providers Payer name Policy type / Coverage type Policy ID Covered green party ID Covered green party's relationship to saez Policy Saez Plan Information UMR [facility] [id number] SP [id number] MEDICARE [id number] SP [id number] R66 MEDICARE [id number] SP [id number] R66 SELF PAY UMR F [id number] SELF [id number] DME Jurisdiction A VAIC C [id number] SELF [id number] Medicare C [id number] SELF [id number] R66 UMR F [id number] SELF [id number] UMR O [id number] S [id number] MEDICARE C [id number] S [id number] R66 DME Jurisdiction A VAIC C [id number] SELF [id number] UMR F [id number] SELF [id number] DME Jurisdiction A VAIC C [id number] SELF [id number] Medicare C [id number] SELF [id number] A ANSI-Commercial [id number] ANSI-Commercial [id number] ANSI-Medicare Part B [id number] Umr/Uhc/[employer] Medigap Part B [id number] Self [id number] Medicare Natl Gov't Servi Medicare Primary [id number] Self [id number] ANSI-Commercial [id number] ANSI-Medicare Part B [id number] ANSI-Commercial [id number] Umr/Uhc/[employer] Medigap Part B [id number] Self [id number] Medicare Natl Gov't Servi Medicare Primary [id number] Self [id number] [employer] / UMR F [id number] SELF [id number] [employer]OM[employer] PPO O [id number] S [id number] MEDICARE C [id number] S [id number] A [employer]OM[employer] [id number] SP [id number] MEDICARE [id number] SP [id number] A [place] F [id number] SELF [id number] [facility] Commercial [id number] Self [id number] [place] Medigap Part B [id number] Self [id number] [place] Primary [id number] Self [id number] DME Jurisdiction A NHIC C [id number] SELF [id number] [employer] Medigap Part B [id number] Self [id number] [place] Primary [id number] Self [id number] [place] Medigap Part B [id number] Self [id number] Medicare Natl Gov't Servi Medicare Primary [id number] Self [id number] [place] Medigap Part B [id number] Self [id number] Medicare Natl Gov't Servi Medicare Primary [id number] Self [id number] [place] Medigap Part B Self Medicare Natl Gov't Servi Medicare Primary Self POM[employer] [id number] SP [id number] Medicare (Part B) Medicare Primary Self [place] Medigap Part B Self MEDICARE [id number] SP [id number] A Medicare Medicare Primary Self [employer] [id number] SP [id number] A [id number] Problems, Conditions, and Diagnoses Code Display Name Description Problem Type Effective Dates Data Source(s) 939026130 Overweight Overweight Problem 04/27/2019 12:00:00 AM LAURENT TORRES ([facility] [id number] Dietary management surveillance Dietary manageme nt surveillance Problem 04/27/2019 12:00:00 AM CHAI TORRES ([facility]) Surgeries/Procedures Procedure Description Date Indications Data Source(s) OFFICE/OUTPATIENT VISIT, EST 11/04/2019 12:00:00 AM EDT - 11/04/2019 12:00:00 AM EDT NextGen ([facility]) ECG ROUTINE ECG W/LEAST 12 LDS W/I&R 04/27/2019 12:00: 00 AM CHAI TORRES ([facility] Arterial Pressure Waveform Analysis For Assessment Of Centra l Art 04/27/2019 12:00:00 AM CHAI TORRES ([facility] [facility]) Annual wellness visit, includes a person alized prevention plan of service (pps), subsequent visit 04/09/2019 12:00:00 AM EST eCW1 ([facility]) Office Visit, Est Pt., Level 3 PC 04/09/2019 12:00:00 AM EST eCW1 ([facility]) Office Visit, Est Pt., Level 4 FC 04/09/2019 12:00:00 AM EST eCW1 ([facility]) Medicare, Tricare, [place], PC-INTERPRETATION AND REPORT 04/09/2019 12:00:00 AM EST eCW1 ([facility]) Medicare, Tricare, [place], FC-ELECTROCARDIOGRAM, TRACING ON LY 04/09/2019 12:00:00 AM EST eCW1 ([facility]) Influenza immunization administered or previously received 04/09/2019 12:00:00 AM EST eCW1 ([facility]) Results ID Date Data Source [id number] 04/22/2020 01:29:51 PM EST [facility] PC[facility]: Janette PegueroAP: 4Provider: Walter Holder: 04/12/2020 Reason For VisitJanette Peguero is here today for. Janette Peguero is an established patient here for follow up. Patient states her left shoulder is doing quite well. She denies pain or discomfort. Other DOI/DOO:. The patient has had a course of physical therapy for greater than 4 weeks. The patient has followed a home exercise program for greater than 4 weeks. The patient has not had a course of NSAIDs for greater than 4 weeks. Patient is retired. History of Present IllnessLeft-sided anterior shoulder pain is about the clavicle, with swelling. No remaining pain. Fully functional, satisfied. Onset after a fall December 2018. Much improved with conservative care. Status post remote left shoulder arthroscopy debridement decompression and rotator cuff repair, 08/05/2016. Had done well with this. No neck pain, neurologic symptoms or current radicular symptoms, or mechanical complaints. Right shoulder asymptomatic. Results/Data XRays previously taken were reviewed today. Side: Left Site: Shoulder Views: 3 Views AP/Outlet/Axillary Findings: No fractures, dislocations, or other significant abnormalities., Postoperative changes subacromial space and humeral head with retained anchors, no destructive changes. Clavicle appears to be in good condition no evidence of old or new fractures. Sternoclavicular joint appears grossly normal. hardware is in good position. Post-surgical changes and/or hardware are satisfactory. no evidence of implant loosening. subacromial decompression is satisfactory. AssessmentPosttraumatic left shoulder pain, after a fall December 2018, with acute sternoclavicular joint arthritic changes, pain and swelling. Status post remote rotator cuff repair and decompression, 2017, doing well with this. Symptomatic care recommended, physical therapy, and observation. She has improved, pain resolved. Follow-up as needed, activities as tolerated. PlanPlan, Assessment and Recommendation(s) The plan for the patient is activities as tolerated. continue with conservative treatment. Not Comp, No- Fault, or Liability. Follow up as needed, if not improving, or getting worse. This document was dictated and electronically signed using Cloupia software. A reasonable attempt at proof reading has been made to minimize errors. Please call with any questions. Signatures Electronically signed by : Will Holdre M.D.; Apr 22 2020 1:29PM EST (Author) Name Value Range Interpretation Code Description Data Akilah rce(s) Supporting Document(s) ID Date Data Source [id number] 03/20/2020 07:46:56 AM EST [facility] PCName: Janette PegueroAP: 4Provider: Seymour Arcos: 03/14/2020 Reason For VisitJanette Peguero is here today for Right ankle. Janette Peguero is an established patient here for a new problem. c/o pain on the lateral side of her ankle The patient was notified that the office visit was recorded to enhance documentation accuracy. Patient is retired. History of Present IllnessCHIEF COMPLAINTFollow-up of right ankle.HISTORY OF PRESENT ILLNESSThe patient is a pleasant 74-year-old female who comes in due to her right ankle. She reports that she has been experiencing pain and swelling in the lateral aspect of her right ankle. She denies any injury. She states that she has been using a cane and regular shoes. Results/DataX-rays, 3 views of the right ankle, were ordered, obtained, and interpreted today. Findings show subfibular exostosis and spurring or degenerative change noted. There is an anterior talar neck spur as well. Posterior and plantar calcaneal spurs are noted. No other fractures, dislocations, or acute abnormalities are seen. Assessment 1. History of Right ankle pain (719.47) (M25.571) 2. Right ankle pain (719.47) (M25.571) ASSESSMENT:Right ankle primary osteoarthritis, peroneal tendinitis, lateral talar process exostosis. Plan 1. X-Ray I Ankle - 3 views (XRays were ordered, obtained and interpreted today in the office. Indication: pain/dysfunction.); Status:Complete; Done: 14Mar2020 Perform:SOS22; Due:[id number]; Last Updated By:Pily Duron; 03/14/2020 10:31:38 AM;Ordered; For:Right ankle pain; Ordered By:Jose Arcos;Weight Bearing Status : Weight bearingLaterality: : Right PLAN:The plan is going to be for surgery. I had a long talk with Janetet today in the office. She has pain in the lateral ankle near the peroneal tendons and lateral talar process. She has ongoing worsening trouble despite conservative management at home and now wants to go forward with surgery to remove the spur. We showed her the x-rays. She and I are both of the belief that this is not going to get better just with injection therapy, physical therapy, bracing, which she is already trying, etc. so we will do a lateral talar process exostectomy, peroneal tendon exploration, tenosynovectomy, and possible repair if needed. She would be 2 weeks [id number], 4 weeks guarded weight-bearing, physical therapy at week 3-4 depending on whether or not a tear is found. She is 74 years old, but young 74 and likes to walk 8-10 miles a day. It will probably be 6-8 weeks before she is able to do that, but the goal is to get her back into that type of activity. Risks of surgery include, but are not limited to, infection, wound problems, blood clot, pulmonary embolism, scar tissue, neuralgia, continued swelling, and need for further surgery. She wants to go forward with things. We will set things up when it is convenient for her. Scribed by Jin DAVEY on 03/14/2020 at 09:30 PM for Jose Arcos Signatures Electronically signed by : Carla Prasad MA; Mar 14 2020 9:30PM EST (Author) Electronically signed by : Jose Arcos DPM; Mar 20 2020 7:46AM EST Name Value Range Interpretation Code Description Data Akilah rce(s) Supporting Document(s) ID Date Data Source [id number] 11/22/2019 05:43:38 PM EDT [facility] PCName: Janette MaherB: 4Provider: Walter Holder: 11/10/2019 History of Present IllnessLeft-sided anterior shoulder pain is about the clavicle, with swelling. Onset after a fall December 2018. Pain is none to minimal. Much improved with conservative care. Status post remote left shoulder arthroscopy debridement decompression and rotator cuff repair, 08/05/2016. Had done well from this. No neck pain, neurologic symptoms or current radicular symptoms, or mechanical complaints. Right shoulder asymptomatic. Results/Data XRays previously taken were reviewed today. Side: Left Site: Shoulder Views: 3 Views AP/Outlet/Axillary Findings: No fractures, dislocations, or other significant abnormalities., Postoperative changes subacromial space and humeral head with retained anchors, no destructive changes. Clavicle appears to be in good condition no evidence of old or new fractures. Sternoclavicular joint appears grossly normal. hardware is in good position. Post-surgical changes and/or hardware are satisfactory. no evidence of implant loosening. subacromial decompression is satisfactory. AssessmentPosttraumatic left shoulder pain, after a fall December 2018, with acute sternoclavicular joint arthritic changes, pain and swelling. Status post remote rotator cuff repair and decompression, 2016, doing well with this. Symptomatic care recommended, physical therapy, and observation. She has improved. Follow-up in months. We'll consider further imaging if no distant improvement with conservative management, such as CT scan or MRI. PlanPlan, Assessment and Recommendation(s) continue with current plan. Schedule Appointment: Months: 3 This document was dictated and electronically signed using Cloupia software. A reasonable attempt at proof reading has been made to minimize errors. Please call with any questions. Signatures Electronically signed by : Will Holder M.D.; Nov 22 2019 5:43PM EST (Author) Name Value Range Interpretation Code Description Data Akilah rce(s) Supporting Document(s) ID Date Data Source [id number] 06/22/2019 05:46:18 AM EST [facility] PCName: Janette Pickett: 4Provider: Walter Holder: 06/09/2019 History of Present IllnessLeft-sided anterior shoulder pain is about the clavicle, with swelling. Onset after a fall December 2018. Pain is mild and not particularly disabling. Status post left shoulder arthroscopy debridement decompression and rotator cuff repair, 08/05/2016. Had done well from this. No neck pain, neurologic symptoms or current radicular symptoms, or mechanical complaints. Right shoulder asymptomatic. Results/DataXRays were ordered, obtained and interpreted today in the office. Indication: pain/dysfunction. Side: Left Site: Shoulder Views: 3 Views AP/Outlet/Axillary Findings: No fractures, dislocations, or other significant abnormalities., Postoperative changes subacromial space and humeral head with retained anchors, no destructive changes. Clavicle appears to be in good condition no evidence of old or new fractures. Sternoclavicular joint appears grossly normal. hardware is in good position. Post-surgical changes and/or hardware are satisfactory. no evidence of implant loosening. subacromial decompression is satisfactory. Assessment Acute pain of left shoulder (719.41) (M25.512) Posttraumatic left shoulder pain, after a fall December 2018, with acute sternoclavicular joint arthritic changes, pain and swelling. Status post remote rotator cuff repair and decompression, 2016, doing well with this. Symptomatic care recommended, physical therapy, and observation. Follow-up in 6 weeks. We'll consider further imaging if no improvement with conservative m anagement, such as CT scan or MRI. Plan X-Ray I Shoulder - 2 views (XRays were ordered, obtained and interpreted today in theoffice. Indication: pain/dysfunction.); Status:Complete; Done: [id number] Perform:SOS22; Due:23Jun2019; Last Updated By:Pily Duron; 06/09/2019 10:56:10 AM;Ordered; For:Bursitis of left shoulder; Ordered By:Will Holder;Laterality: : Left Physical Therapy (SOS) - K1 Knee: meniscus/arthritis/arthroscopy Treatment Treatment Status: Complete Done: 09Jun2019 Ordered;For: Shoulder pain; Ordered By: Will Holder Performed: Order Comments: s/p RCR Due: 23Jun2019; Last Updated By: Edna Agustin; 06/09/2019 11:18:31 AMDuration: : Two WeeksPT Frequency : Once or twice a week Plan, Assessment and Recommendation(s) The plan for the patient is PT/HEP, RICE, Meds. continue with conservative treatment. Not Comp, No-Fault, or Liability. Schedule Appointment: Weeks: 6 Schedule next visit with: Will Holder MD. This document was dictated and electronically signed using Cloupia software. A reasonable attempt at proof reading has been made to minimize errors. Please call with any questions. Signatures Electronically signed by : Will Holder M.D.; Jun 22 2019 5:46AM EST (Author) Name Value Range Interpretation Code Description Data Akilah rce(s) Supporting Document(s) ID Date Data Source [id number] 04/09/2019 01:11:00 PM EST MEDENT ([facility]) Name Value Range Interpretation Code Description Data Akilah rce(s) Supporting Document(s) Troponin <0.02 [facility] ([facility] ID Date Data Source [id number] 04/09/2019 01:11:00 PM EST MEDENT ([facility] Name Value Range Interpretation Code Description Data Akilah rce(s) Supporting Document(s) Glucose 85 83-110 [facility] ([facility] Blood Urea Nitrogen 17 7-18 MEDENT ([facility] Sodium 140 136-145 [facility] Creatinine 0.93 0.6-1.0 [facility] Chloride 103 98-107 [facility] Calcium 9.4 8.2-9.6 [facility] Carbon Dioxide 30 21-32 [facility] Potassium 4.4 3.5-5.1 [facility] ([facility] Glomerular filtration rate/1.73 sq M.pre dicted [Volume Rate/Area] in Serum or Plasma by Creatinine-based formula (MDRD) >60.0 [facility]ENT ([facility]) ID Date Data Source [id number] 04/09/2019 12:00:00 AM EST eCW1 ([facility]) Name Value Range Interpretation Code Description Data Akilah rce(s) Supporting Document(s) Albumin/Creatinine [Mass Ratio] in Urine 5.2 MALB URINE SIEMENS eCW1 ([facility]) Microalbumin/Creatinine [Mass Ratio] in Urine 72.0 CREATININE, URINE eCW1 ([facility]) Microalbumin/Creatinine [Ratio] in Urine 7.2 0.0-30.0 MAUDE/CREAT RATIO eCW1 ([facility]) ID Date Data Source TROPONIN I 04/09/2019 12:00:00 AM EST eCW1 ([facility]) Name Value Range Interpretation Code Description Data Akilah rce(s) Supporting Document(s) < 0.02 < 0.10 TROPONIN I eCW1 ([facility]) ID Date Data Source Basic Metabolic Profile (BMP) 04/09/2019 12:00:00 AM EST eCW 1 ([facility]) Name Value Range Interpretation Code Description Data Akilah rce(s) Supporting Document(s) 85 70-100 GLUCOSE, FASTING eCW1 ([facility]) 17 7-18 BLOOD UREA NITROGEN eCW1 ([facility]) > 60.0 >39 GLOMERULAR FILTRATION RATE eCW 1 ([facility]) 140 136-145 SODIUM LEVEL eCW1 ([facility]) 4.4 3.5-5.1 POTASSIUM SERUM eCW1 ([facility]) 103 98-107 CHLORIDE LEVEL eCW1 ([facility]) 0.93 0.55-1.30 CREATININE FOR GFR eCW1 ([facility]) 9.4 8.8-10.2 CALCIUM LEVEL eCW1 ([facility]) 30 21-32 CARBON DIOXIDE LEVEL eCW1 ([facility]) Procedure Social History Code Duration Value Status Description Data Source(s ) Smoking 04/18/2020 12:00:00 AM EST Never Smoker completed Never S moker eCW1 ([facility]) Smoking 04/18/2020 12:00:00 AM EST Never Smoker completed Never S moker eCW1 ([facility]) Smoking 04/18/2020 12:00:00 AM EST Never Smoker completed Never S moker eCW1 ([facility]) Caffeine Use Details 11/04/2019 12:00:00 AM EDT completed NextGen ([facility]) 11/04/2019 12:00:00 AM EDT Never smoked tobacco comple nazanin Never smoked tobacco NextGen ([facility]) Smoking 11/04/2019 12:00:00 AM EDT Unknown if ever smoked comp leted Unknown if ever smoked NextGen ([facility]) Smoking 04/09/2019 12:00:00 AM EST Never Smoker completed Never S moker eCW1 ([facility]) Smoking 04/09/2019 12:00:00 AM EST Never Smoker completed Never S moker eCW1 ([facility]) Vital Signs ID Date Data Source UNK Name Value Range Interpretation Code Description Data Source(s) Diastolic blood pressure 70 mm[Hg] 70 mm[Hg] eCW1 ([facility]) Systolic blood pressure 124 mm[Hg] 124 mm[Hg] e CW1 ([facility]) Body temperature 97 [degF] 97 [degF] eCW1 ([facility]) Respiratory rate 20 /min 20 /min eCW1 ([facility]) Heart rate 82 /min 82 /min eCW1 ([facility]) Body mass index (BMI) [Ratio] 24.88 kg/m2 24.88 kg/m2 eCW1 ([facility]) Body height 65.75 [in_i] 65.75 [in_i] eCW1 ([facility]) Body weight 153 [lb_av] 153 [lb_av] eCW1 ([facility]) Body mass index (BMI) [Ratio] 24.53 kg/m2 24.53 kg/m2 NextGen ([facility]) Diastolic blood pressure 80 mm[Hg] 80 mm[Hg] NextGen ([facility]) Systolic blood pressure 124 mm[Hg] 124 mm[Hg] N extGen ([facility]) Body weight 68.946 kg 68.946 kg [facility] Body height 167.64 cm 167.64 cm NextGen ([facility]) Diastolic blood pressure--sitting 89 mm[Hg] 89 mm[Hg] MEDENT ([facility]) CBP adult cuff, Ra Systolic blood pressure--sitting 148 mm[Hg] 148 mm[Hg] MEDENT ([facility]) CBP adult cuff, Ra Heart rate 74 /min 74 /min MEDENT ([facility]) Body mass index (BMI) [Ratio] 26.0 kg/m2 26.0 k g/m2 MEDENT ([facility]) Body height 66 [in_i] 66 [in_i] MEDENT ([facility]) 5'6" Body weight 161.00 [lb_av] 161.00 [lb_av] MEDEN T ([facility]) Diastolic blood pressure 70 mm[Hg] 70 mm[Hg] eCW1 ([facility]) Systolic blood pressure 118 mm[Hg] 118 mm[Hg] e CW1 ([facility]) Body temperature 97.3 [degF] 97.3 [degF] eCW1 ( [facility]) Respiratory rate 18 /min 18 /min eCW1 ([facility]) Heart rate 82 /min 82 /min eCW1 ([facility]) Body mass index (BMI) [Ratio] 27.32 kg/m2 27.32 kg/m2 eCW1 ([facility]) Body height 65.75 [in_us] 65.75 [in_us] eCW1 ([facility]) Body weight Measured 168.0 [lb_av] 168.0 [lb_av ] eCW1 ([facility])
--- NOTE | 2020-06-01 22:29 | ED PDOC ---
Post-Departure Follow-Up mri brain/mra brain faxed formal report for Ana Rodriguez MD Jun 01, 2020 22:29
== END 2020-05-30 21:15 | disposition home or self-care (01) ==
LOC: M ED 13:48
DX: I63.542 Cerebral infarction due to unspecified occlusion or stenosis of left cerebellar artery (principal); Z12.31 Encounter for screening mammogram for malignant neoplasm of breast; Z80.3 Family history of malignant neoplasm of breast; Z86.018 Personal history of other benign neoplasm; I25.10 Atherosclerotic heart disease of native coronary artery without angina pectoris; K21.9 Gastro-esophageal reflux disease without esophagitis; I10 Essential (primary) hypertension; E78.5 Hyperlipidemia, unspecified; Z86.73 Personal history of transient ischemic attack (TIA), and cerebral infarction without residual deficits; Z79.82 Long term (current) use of aspirin; Z79.899 Other long term (current) drug therapy

== ENCOUNTER → 2020-05-30 | Outpatient (CLI) | payer MEDICARE, OTHER ==
[~2020-05-30] MED LIST changes: +ASPI-546; -ASPI1TAB15; +LISI10TA22; -LISI10TA4
--- NOTE | 2020-05-30 15:15 | REPMRS ---
Patient History The patient states she has not had a clinical breast exam in over a year. Family history of breast cancer at age 50 or over in mother. Benign stereotatic breast biopsy of the right breast, April 23, 2010. No Hormone Replacement Therapy Digital Woman Screen Mammo: May 30, 2020 - Exam #: [id number] Bilateral CC and MLO view(s) were taken. Technologist: Elizabeth Marie, Technologist Prior study comparison: May 27, 2019, bilateral digital woman screen mammo performed at [facility]. May 19, 2018, bilateral digital woman screen mammo performed at [facility]. May 14, 2017, digital woman screen mammo performed at [facility]. FINDINGS: There are scattered fibroglandular densities. The Volpara volumetric breast density category is:B. There has been no change in the appearance of the mammogram from the prior studies. There is a mild amount of scattered fibroglandular density which is fairly symmetric. There is no interval development of dominant mass, architectural distortion, or grouped microcalcification suggestive of malignancy. 3-D tomosynthesis shows no additional findings. Assessment: BI-RADS/ACR category 1 mammogram. Negative Mammogram. Recommendation Routine screening mammogram of both breasts in 1 year (for women over age 40). This patient's [facility] Lifetime Breast Cancer Risk is estimated at 6.1 %. This mammogram was interpreted with the aid of an FDA-approved computer-aided dectection system. Electronically Signed By: Chandler Mart MD 05/30/20 [id number]
== END ==
LOC: M WHC 13:01
PROVIDERS: ATTEND Nurse Practitioner Family
DX: Z12.31 Encounter for screening mammogram for malignant neoplasm of breast (principal); Z80.3 Family history of malignant neoplasm of breast; Z86.018 Personal history of other benign neoplasm

== ENCOUNTER → 2020-07-18 | Outpatient (CLI) | payer MEDICARE, OTHER ==
--- NOTE | 2020-07-18 16:26 | REP ---
INDICATION: DIZZINESS GIDDINESS COMPARISON: 12/20/2014 TECHNIQUE: Real-time ultrasound evaluation and duplex Doppler interrogation of the extracranial carotid vasculature is performed. FINDINGS: There is mild plaquing and narrowing in both carotid bulbs extending into the internal and external carotid arteries, similar to the study from 12/20/2014. Luminal narrowing is less than 50%. There is no evidence of hemodynamically significant stenosis of either internal carotid artery. Normal flow velocities are seen. The vertebral arteries demonstrate normal direction of flow. RIGHT LEFT Peak systolic velocity ICA 76.4 cm/s 70.3 cm/s End diastolic velocity ICA 26 cm/s 24.4 cm/s Peak systolic velocity CCA 88.6 cm/s 1.24cm/s Peak systolic velocity ECA 74.4 cm/s 69.7 cm/s ICA/CCA ratio 0.86 0.57 IMPRESSION: Bilateral luminal narrowing of the internal carotid arteries less than 50%. No evidence of hemodynamically significant stenosis. Stable examination. <Electronically signed by Tu Woods > 07/18/20 [id number]
== END ==
LOC: M RAD 13:44
PROVIDERS: ATTEND Physician Assistant
DX: I65.23 Occlusion and stenosis of bilateral carotid arteries (principal); R42 Dizziness and giddiness

== ENCOUNTER → 2021-07-24 | Outpatient (CLI) | payer MEDICARE, OTHER | LOC: M WHC 12:56 | PROVIDERS: ATTEND Nurse Practitioner Adult Health | DX: Z12.31 Encounter for screening mammogram for malignant neoplasm of breast (principal) ==

== ENCOUNTER → 2021-08-22 | Outpatient (CLI) | payer MEDICARE, OTHER | LOC: M LABSMTC 09:55 | PROVIDERS: ATTEND Orthopaedic Surgery Adult Reconstructive Orthopaedic Surgery | DX: Z11.52 Encounter for screening for COVID-19 (principal) ==

== ENCOUNTER → 2022-07-25 | Outpatient (CLI) | payer MEDICARE, OTHER | LOC: M WHC 13:08 | PROVIDERS: ATTEND Nurse Practitioner Adult Health | DX: Z12.31 Encounter for screening mammogram for malignant neoplasm of breast (principal); Z80.3 Family history of malignant neoplasm of breast ==

== ENCOUNTER → 2023-05-05 | Outpatient (CLI) | payer MEDICARE, OTHER ==
[~2023-05-05] MED LIST changes: +ASPI81TA26 PO; +CLOP75TA2 PO; +LANS30CA PO; +LISI10TA22 PO; +PRAV10TA3 PO
== END ==
LOC: M RAD 10:07
PROVIDERS: ATTEND Internal Medicine Cardiovascular Disease
DX: I47.19 Other supraventricular tachycardia (principal); H34.02 Transient retinal artery occlusion, left eye; I49.5 Sick sinus syndrome; Z86.79 Personal history of other diseases of the circulatory system

== ENCOUNTER → 2023-05-29 | Outpatient (CLI) | payer MEDICARE, OTHER | LOC: M PLAIMG 11:06 | PROVIDERS: ATTEND Internal Medicine Cardiovascular Disease | DX: H34.02 Transient retinal artery occlusion, left eye (principal); I50.32 Chronic diastolic (congestive) heart failure; R94.31 Abnormal electrocardiogram [ECG] [EKG]; I35.0 Nonrheumatic aortic (valve) stenosis ==

== ENCOUNTER → 2023-06-05 | Outpatient (CLI) | payer MEDICARE, OTHER | LOC: M CARPUL 15:33 | PROVIDERS: ATTEND Internal Medicine Cardiovascular Disease | DX: H34.02 Transient retinal artery occlusion, left eye (principal); I50.32 Chronic diastolic (congestive) heart failure; R94.31 Abnormal electrocardiogram [ECG] [EKG] ==

== ENCOUNTER 2023-07-16 09:38 | Day surgery (SDC) | payer MEDICARE, OTHER ==
[~2023-07-16] VITALS: Ht 167.6 cm; Wt 68.9 kg
[~2023-07-16 09:38] MED LIST changes: +CALC600T86 PO; +CHOL50003 PO; +D-101000 PO; +LIDOCAINE 2% 100MG/5ML SDV (FOR ANES.) As Ordered ONE; +PREV30TA3 PO; +VITATAB73 PO; +propofoL 200 MG/20 ML VIAL As Ordered ONE
[2023-07-16] MEDS: NS 1,000 ML IV ONE (10:06)
[2023-07-16 11:45] VITALS: TEMP 97.4
[2023-07-16 12:05] VITALS: BP 130/62; O2SAT 98
== END 2023-07-16 12:27 | disposition home or self-care (01) ==
LOC: M OPP 09:38
PROVIDERS: ATTEND Internal Medicine Gastroenterology
DX: K62.89 Other specified diseases of anus and rectum (principal); K64.0 First degree hemorrhoids; K57.30 Diverticulosis of large intestine without perforation or abscess without bleeding; R19.5 Other fecal abnormalities; R19.4 Change in bowel habit; I50.9 Heart failure, unspecified; I35.9 Nonrheumatic aortic valve disorder, unspecified; Z79.02 Long term (current) use of antithrombotics/antiplatelets; Z79.82 Long term (current) use of aspirin; Z79.899 Other long term (current) drug therapy; Z88.5 Allergy status to narcotic agent; Z88.8 Allergy status to other drugs, medicaments and biological substances

== ENCOUNTER → 2023-07-29 | Outpatient (CLI) | payer MEDICARE, OTHER ==
[~2023-07-29] MED LIST changes: -LIDOCAINE 2% 100MG/5ML SDV (FOR ANES.) As Ordered ONE; -propofoL 200 MG/20 ML VIAL As Ordered ONE
== END ==
LOC: M WHC 08:34
PROVIDERS: ATTEND Nurse Practitioner Adult Health
DX: Z12.31 Encounter for screening mammogram for malignant neoplasm of breast (principal)

== ENCOUNTER 2023-08-19 10:58 | Day surgery (SDC) | payer MEDICARE, OTHER ==
[~2023-08-19] VITALS: Ht 167.6 cm; Wt 73.5 kg
[2023-08-19] MEDS ORDERED: LR 1,000 ML IV SCH (11:35)
[2023-08-19 11:51] LABS: HEMOGLOBIN 15.2 g/dl (12.0-15.5); MEAN CORPUSCULAR HEMOGLOBIN 31.1 pg (27.0-33.0); MEAN CORPUSCULAR VOLUME 94.1 fl (80.0-96.0); PLATELET COUNT, AUTOMATED 226 10^3/uL (150-450); RED BLOOD COUNT 4.89 10^6/uL (4.00-5.40); WHITE BLOOD COUNT 6.9 10^3/uL (4.0-10.0)
[2023-08-19 12:17] LABS: BLOOD UREA NITROGEN 22 MG/DL (9-23); CALCIUM LEVEL 9.8 MG/DL (8.3-10.6); CARBON DIOXIDE LEVEL 31 MMOL/L (20-31); CHLORIDE LEVEL 104 MMOL/L (98-107); CREATININE FOR GFR 0.86 MG/DL (0.55-1.30); GLOMERULAR FILTRATION RATE > 60.0 (>32); GLUCOSE, FASTING 90 MG/DL (74-106); POTASSIUM SERUM 4.6 MMOL/L (3.5-5.1); SODIUM LEVEL 139 MMOL/L (136-145)
[2023-08-19] MEDS: ceFAZolin 2 GM/D5W 50 ML IV BAG As Ordered ONE (14:10)
[2023-08-19] MEDS: LIDOCAINE 1% SDV 30ML VIAL As Ordered ONE (14:23)
[2023-08-19 14:47] VITALS: BP 165/70; TEMP 96.8; O2SAT 98
== END 2023-08-19 14:50 | disposition home or self-care (01) ==
LOC: M SDC 10:58
PROVIDERS: ATTEND Internal Medicine Cardiovascular Disease
DX: H34.02 Transient retinal artery occlusion, left eye (principal); I44.7 Left bundle-branch block, unspecified; R01.1 Cardiac murmur, unspecified
CPT/HCPCS: 33285; 36415; 80048; 85027; C1764; J0690

== ENCOUNTER → 2024-07-29 | Outpatient (CLI) | payer MEDICARE, OTHER | LOC: M WHC 08:29 | PROVIDERS: ATTEND Nurse Practitioner Adult Health | DX: Z12.31 Encounter for screening mammogram for malignant neoplasm of breast (principal) ==

== ENCOUNTER 2024-08-03 06:08 | Emergency (ER) | payer MEDICARE, OTHER ==
[~2024-08-03] VITALS: Ht 167.6 cm; Wt 73.8 kg
[2024-08-03 06:43] LABS: HEMATOCRIT 45.6 % (36.0-47.0); HEMOGLOBIN 14.9 g/dl (12.0-15.5); MEAN CORPUSCULAR HEMOGLOBIN 30.7 pg (27.0-33.0); MEAN CORPUSCULAR HGB CONC 32.7 g/dl (32.0-36.5); MEAN CORPUSCULAR VOLUME 93.8 fl (80.0-96.0); PLATELET COUNT, AUTOMATED 176 10^3/uL (150-450); RED BLOOD COUNT 4.86 10^6/uL (4.00-5.40); WHITE BLOOD COUNT 6.2 10^3/uL (4.0-10.0)
[2024-08-03 06:56] LABS: INR 0.96; PROTHROMBIN TIME 13.1 SECONDS (12.5-14.5)
[2024-08-03 07:16] LABS: CALCIUM LEVEL 9.6 MG/DL (8.3-10.6); CREATININE FOR GFR 0.82 MG/DL (0.55-1.30); GLOMERULAR FILTRATION RATE 72.3 (>32)
[2024-08-03 08:15] VITALS: BP 178/77; TEMP 97.3; O2SAT 97
== END 2024-08-03 08:35 | disposition home or self-care (01) ==
LOC: M ED 06:08
DX: S00.03XA Contusion of scalp, initial encounter (principal); F07.81 Postconcussional syndrome; Y92.9 Unspecified place or not applicable; Y93.9 Activity, unspecified; Y99.9 Unspecified external cause status; I50.22 Chronic systolic (congestive) heart failure; I11.0 Hypertensive heart disease with heart failure; E78.5 Hyperlipidemia, unspecified; K21.9 Gastro-esophageal reflux disease without esophagitis; Z86.73 Personal history of transient ischemic attack (TIA), and cerebral infarction without residual deficits; Z88.5 Allergy status to narcotic agent; Z79.1 Long term (current) use of non-steroidal anti-inflammatories (NSAID); Z79.899 Other long term (current) drug therapy